=== PATIENT | female | born 1960 | race Caucasian/White ===

== ENCOUNTER 2018-04-12 05:54 | Day surgery (SDC) | payer MEDICAID, SELFPAY ==
--- NOTE | 2018-04-12 | VOCOB_PTH ---
PATIENT: NAKUL CASTLE [place] [facility] [id number] AGE/SX: 57/F ROOM: RE04/12/[address]: Dr. Sebastian Vargas MD : 1960 BED: DIS: 04/12/2018 SPEC #: [id number] RECD: 04/12/18 13:05 STATUS: GAURAV MICHAEL #: [id number] JATINDER: 04/12/18 00:[address]: Sebastian Vargas DEPT: SURGICAL PATHOLOGY RECD BY: Sam Gomez ENTERED: 04/12/18 13:05 SP TYPE: VOCAL CORD OTHR DR: Dr. Pipe Padilla MD Tissues: Vocal cord, NOS Procedures: PAS Fungus (control) Special Stain Group I Surgery Specimen Level IV HEADER OPERATION: Direct microlaryngoscopy PRE-OP DIAGNOSIS: Polyp of vocal cord, hoarseness TISSUE SUBMITTED: Hemorrhagic polyp of left vocal fold MICROSCOPIC DIAGNOSIS Left vocal cord polyp, biopsy: Benign mucosal polyp with hyperkeratosis and focal parakeratosis. 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 Negative for fungal organisms. See Comment. AM:heri 04/15/18 COMMENT PAS stain for focal fungal organisms is negative. Matched control is appropriate. Results from immunohistochemistry ([id number]) for surrogate HPV marker (p16) are reported separately and support the diagnosis. Case has been reviewed in consultation with Dr. Quintero who concurs with the above diagnosis. IDC:SJ MICROSCOPIC DESCRIPTION Slides are reviewed. Sections show fragments of mucosal polyp lined by squamous epithelium with hyperkeratosis and focal parakeratosis. There is focal mild to moderate squamous dysplasia present. GROSS DESCRIPTION Received in fixative is one container labeled with the patient's name and designated hemorrhagic polyp of left vocal cord. The specimen consists of a single irregular fragment of pink-estrada soft tissue that measures 2 x 0.5 x 0.3 cm. The specimen is totally submitted in one cassette. / AM:heri 04/12/18 TC:4 CPT: 54587, 71105
--- NOTE | 2018-04-12 | IMM_PTH ---
PATIENT: NAKUL CASTLE [place] [facility] [place][id number] AGE/SX: 57/F ROOM: RE04/12/[address]: Dr. Sebastian Vargas MD : 1960 BED: DIS: 04/12/2018 SPEC #: [id number] RECD: 04/15/18 10:59 STATUS: GAURAV REQ #: [id number] JATINDER: 04/12/18 00:[address]: Sebastian Vargas DEPT: IMMUNOHISTOCHEMISTRY RECD BY: Frieda Bhat ENTERED: 04/15/18 10:59 SP TYPE: IMMUNO OTHR DR: Dr. Pipe Padilla MD Tissues: Vocal cord, NOS Procedures: p16 (initial) KI-67 (add) PHYSICIAN & INSTITUTION [place] [id number] SPECIMEN INFORMATION: Tissue Source: Hemorrhagic polyp of left vocal fold Clinical Info: Polyp of vocal cord, hoarseness Specimen Number: [id number] CPT code: 01010, 81844 METHODOLOGY: Deparaffinized sections of prefer/formalin-fixed tissue or PAP/DQ stained slides are incubated with monoclonal/polyclonal antibodies/oligonucleotide probes. Localization is made via biotin free immunoperoxidase method. Appropriate controls are performed and reacted as expected. Results on target cell population are indicated in the following table: RESULTS: ANTIBODY / CLONE RESULT P16 (E6H4) positive, focal, patchy Ki-67 (30-9) positive, low These tests were developed and their performance characteristics determined by [facility]. They may not have been cleared or approved by the U.S. Food and Drug Administration. The FDA has determined that such clearance or approval is not necessary. INTERPRETATION: Left vocal cord polyp, biopsy: Focal mild squamous dysplasia. AM:heri 04/16/18 Case has been reviewed in consultation with Dr. Quintero who concurs with the above diagnosis. IDC:BRAYAN
[2018-04-12 06:45] VITALS: BP 117/70; PULSE 81; RESP 16; TEMP 36.9; O2SAT 96; BMI 38.0
[2018-04-12 06:50] LABS: Anion Gap 7 (5-15); BUN 16 mg/dL (7-18); BUN/Creat Ratio 25.1 RATIO (10-20); Chloride 108 mmol/L (98-107); Creatinine, Serum 0.64 mg/dL (0.55-1.02); EST Glomerular Filtration Rate 102 mL/min (>60); Est Glom Filt Rate - Afr Amer 124 mL/min (>60); Glucose 95 mg/dL (74-106); Potassium 3.6 mmol/L (3.5-5.1); Sodium Level 142 mmol/L (136-145)
--- NOTE | 2018-04-12 07:00 | EKG12_ITS ---
Test Reason : PREOP Blood Pressure : / mmHG Vent. Rate : 077 BPM Atrial Rate : 077 BPM P-R Int : 136 ms QRS Dur : 086 ms QT Int : 416 ms P-R-T Axes : 012 033 042 degrees QTc Int : 470 ms Normal sinus rhythm Nonspecific T wave abnormality Prolonged QT Abnormal ECG No previous ECGs available Confirmed by JUMA KIM, GABY ([id number]), visual effects editor LUIS JEAN ([id number]) on 04/16/2018 5:42:31 PM Referred By: Sebastian Vargas Confirmed By:GABY DENNISON MD
[2018-04-12] MEDS: Oxymetazoline 0.05% 1 SPRAY SPRAY.BTL 15 SPRAY (07:40)
[2018-04-12] MEDS: Lidocaine 4% 50 ML Bottle (07:50)
--- NOTE | 2018-04-12 08:06 | PCM.OPRPT ---
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 Examination showed bilateral vocal polyps with a large hemorrhagic polyp on the left. She was counseled regarding the above procedure for improved voicing as well as reduced work of breathing and although this was a biopsy benign-appearing lesion pathologic specimen given his smoking history for possible neoplastic process is also considered and she was agreeable to proceed. The risks, alternatives, potential benefits, and complications were discussed at length and any questions answered to the patient and/or caregiver's satisfaction. Witnessed informed consent was obtained in the office, and the patient and/or caregiver was agreeable to proceed. Procedure went as follows: The patient was identified in the preoperative holding and brought to the operating room she was placed under general anesthesia and it dated. When appropriate anesthesia was obtained, the head of bed was rotated and the patient prepped and draped in usual sterile fashion. A dental guard was then placed to protect the upper gums and the Dedo laryngoscope then introduced. Direct laryngoscopy was then carried out. The lateral posterior pharyngeal wall mucosa, tonsillar fossa, vallecula, piriforms, and epiglottis were noted to be normal in appearance. The true and false vocal folds were then brought into view. The patient was then placed in suspension and the operative microscope brought into the field. Using a pledgets soaked in a 50-50 mixture of oxymetazoline and 4% topical lidocaine the true vocal folds were then topicalized. There were noted to be large polyps arising from the vocal folds bilaterally. This was hemorrhagic on the left and partially obstructing the laryngeal inlet. Using a grasping forceps this was then withdrawn laterally and using an up cutting microlaryngeal scissor was then incised along the vocal process leaving a inferior mucosal flap to be redraped over the incisional site. This was then sent as pathologic specimen. Pledgets were then applied for hemostasis. The pledgets then removed and the patient taken out of suspension and returned to anesthesia where he was revived and extubated without complication having tolerated the procedure well. Type of Anesthesia:: General Anesthesiologist: Rajesh Cruz Special Medications: none Specimen's removed: Left vocal polyp Drains: none Estimated Blood Loss (mL): 0 mL Fluids Replaced: 500 mL Grafts/Implants Used: none - Complications none - Admit VTE Documentation VTE Present on Admission: No VTE Mechan Device Prophylaxis: SCD's VTE Pharm Prophylaxis ordered?: No
--- NOTE | 2018-04-12 08:13 | DCINST_ITS ---
- Discharge Diagnoses Current Active Problems: Current Active and Chronic Problems Polyp of vocal cord and larynx (Chronic) Dysphonia (Chronic) You will use the following diet at home:: Regular Your food should be the consistency of: Regular Discharge Activity: Return to Normal Activity Call your doctor if your incision/area has: - - difficulty breathing Call your doctor if you observe: Fever of 101 or Higher, Uncontrolled pain Additional Instructions: avoid smoking to promote healing Allergies/Adverse Reactions: Allergies morphine Allergy (Verified 04/10/18 10:42) Vomiting Penicillins Allergy (Verified 04/10/18 10:42) Vomiting pollen extracts Adverse Reaction (Verified 04/10/18 10:22) Other Medications to take at Discharge Albuterol Sulfate [Ventolin Hfa] 1 puff IN PRN PRN 04/10/18 Clonazepam 2 mg PO DAILY 04/10/18 Levothyroxine Sodium [Synthroid] 137 mg PO DAILY 04/10/18 RX: ALPRAZolam [Xanax] 0.5 mg PO DAILY 04/10/18 RX: Citalopram [Celexa] 20 mg PO DAILY 04/10/18 RX: Clindamycin [Cleocin] 150 mg PO DAILY 04/10/18 RX: Naproxen [Naprosyn] 500 mg PO DAILY 04/10/18 Primary Care Physician: Pipe Padilla MD [Primary Care Provider] - Test Results: Test results from this visit will be discussed in further detail at your follow- up appointment, if applicable. Please Follow Up With: Sebastian Vargas MD When: 2 weeks
[2018-04-12 08:20] VITALS: BP 109/86; BP 117/70; PULSE 94; RESP 18; TEMP 36.2; O2SAT 93
[2018-04-12 08:30] VITALS: BP 117/70; BP 131/90; PULSE 79; RESP 18; O2SAT 97
[2018-04-12 08:45] VITALS: BP 106/87; BP 117/70; PULSE 86; RESP 16; O2SAT 97
[2018-04-12 08:59] VITALS: BP 103/72; BP 117/70; PULSE 84; RESP 18; TEMP 36.9; O2SAT 96
[2018-04-12 09:17] VITALS: BP 117/70
== END 2018-04-12 09:35 | disposition home or self-care (01) ==
LOC: SDC 05:56 → AC 05:59
PROVIDERS: Family Provider Family Medicine; PCP Family Medicine; Referring Provider Otolaryngology; Visit Provider Otolaryngology
PROC: 0CJS8ZZ Inspection of Larynx, Via Natural or Artificial Opening Endoscopic (ICD-10-PCS; CPT 31575; principal; 2018-04-12 07:25)
DX: J38.1 Polyp of vocal cord and larynx (principal); R49.0 Dysphonia; R23.4 Changes in skin texture; E04.2 Nontoxic multinodular goiter; F17.290 Nicotine dependence, other tobacco product, uncomplicated
CPT/HCPCS: 31541; 36415; 80048; 88305; 88312; 88313; 88341; 88342; 93005; J7120; J2405; J3490

== ENCOUNTER 2021-01-07 05:51 | Day surgery (SDC) | payer MEDICAID, SELFPAY ==
[2021-01-07] VITALS (7 sets, daily range): BP systolic 105–152; BP diastolic 78–99; PULSE 73–89; RESP 18–22; TEMP 36.3–36.8; O2SAT 92–97; BMI 39.1
[2021-01-07] MEDS: Lactated Ringers 1,000 ML 100 ML IV (06:42)
--- NOTE | 2021-01-07 07:30 | VOCOB_PTH ---
PATIENT: NAKUL CASTLE [place] [facility] [place][id number] AGE/SX: 60/F ROOM: RE01/07/[address]: Dr. Sebastian Vargas MD : 1960 BED: DIS: 01/07/2021 SPEC #: [id number] RECD: 01/07/21 08:44 STATUS: GAURAV RODRIGUEZ #: [id number] JATINDER: 01/07/21 07:[address]: Sebastian Vargas DEPT: SURGICAL PATHOLOGY RECD BY: Nancy Dugan ENTERED: 01/07/21 11:55 SP TYPE: VOCAL CORD OTHR DR: Dr. Pipe Padilla MD Tissues: Vocal cord, NOS Procedures: Surgery Specimen Level IV HEADER OPERATION: Excision, vocal polyp PRE-OP DIAGNOSIS: Right vocal cord polyp, hoarseness/dysphagia TISSUE SUBMITTED: Right vocal cord polyp MICROSCOPIC DIAGNOSIS Right vocal cord polyp, biopsy: Fragments of benign vocal cord polyp. AM:heri 01/10/2021 COMMENT Reference is made to the patient's previous left vocal cord polyp, biopsy ([id number]) with similar findings. MICROSCOPIC DESCRIPTION Slides are reviewed. GROSS DESCRIPTION Received in fixative is one container labeled with the patient's name and designated right vocal cord polyp. The specimen consists of multiple irregular fragments of estrada-pink soft tissue that in aggregate measure 1 x 0.5 x 0.1 cm. The specimen is totally submitted in one cassette. / SJ:heri 01/07/21 TC:5 CPT: 03167
[2021-01-07] MEDS: Oxymetazoline 0.05% 1 SPRAY SPRAY.BTL 15 SPRAY (07:55)
[2021-01-07] MEDS: Lidocaine 4% 50 ML Bottle (07:55)
--- NOTE | 2021-01-07 08:15 | OP.PCM_ITS ---
Problems Associated Problem List Diagnoses (1) Polyp of vocal cord and larynx: (2) Dysphonia: Report of Operation Date of Procedure: 01/07/21 Pre-Operative Diagnosis: Right vocal polyp, hoarseness Post-Operative Diagnosis: Same Surgery/Procedure Performed:: Direct microlaryngoscopy with removal of right vocal polyp Description of Surgical Findings:: Jennifer is a 60-year-old female with chronic hoarseness secondary to vocal polyps. The left has been removed with improved breathing complaints but she continue with no hoarseness due to the large right vocal polyp and return for staged resection of the right polyp was offered and she is agreeable to proceed. The risks, alternatives, potential complications, and benefits were discussed at length and any questions answered to the patient and/or caregiver's satisfaction. Witnessed informed consent was obtained in the office, and the patient and/or caregiver was agreeable to proceed. Procedure went as follows: The patient was identified in the preoperative holding and brought to the operating room, placed under general anesthesia, and intubated. When appropriate anesthesia was obtained, the head of bed was rotated and the patient prepped and draped in usual sterile fashion. A dental guard or moistened gauze was then placed to protect the upper gums and the Dedo laryngoscope then introduced. Direct laryngoscopy was then carried out. The lateral posterior pharyngeal wall mucosa, tonsillar fossa, vallecula, piriforms, and epiglottis were noted to be normal in appearance. The true and false vocal folds were then brought into view. There is noted to be a large hemorrhagic polyp on the right. The patient was then placed in suspension and the operative microscope brought into the field. Using pledgets soaked in a 50-50 mixture of oxymetazoline and 4% topical lidocaine the true vocal folds were then topicalized. The right polyp was then grasped with an atraumatic forceps and using an up-cutting microlaryngeal scissor this was then resected along its length leaving a inferiorly based mucosal flap. Upon excision of the polyp mucosal flap was then redraped over the vocal ligament. Pledgets were then aga in placed for hemostasis. The pledgets were then removed and the patient taken out of suspension and returned to anesthesia, was revived, and extubated without complication having tolerated the procedure well. Surgeon: Sebastian Vargas Type of Anesthesia: General Anesthesiologist: DeHorta,Sebastian Specimen's removed: right vocal polyp Drains: none Estimated Blood Loss (mL): 0 mL Fluids Replaced: 800 mL Grafts/Implants Used: none Complications none Admit VTE Documentation VTE Present on Admission: No VTE Mechan Device Prophylaxis: SCD's VTE Pharm Prophylaxis ordered?: No
--- NOTE | 2021-01-07 08:21 | PCM.DC ---
Discharge Instructions Diet Discharge Diet: No restrictions Activity Discharge Activity: Return to Normal Activity Dressing / Incision Call your doctor if you observe: Fever of 101 or Higher, Shortness of breath and Uncontrolled pain Follow Up Care Please Follow Up With: Sebastian Vargas MD When: 2 weeks Test Results: Test results from this visit will be discussed in further detail at your follow-up appointment, if applicable. Discharge Plan Admission Primary Reason for Your Visit: vocal polyps Attending Provider: Sebastian Vargas Primary Care Provider: Pipe Padilla Discharge Orders/Prescriptions Prescriptions: Continued levothyroxine [Synthroid] 137 tablet 137 mg PO DAILY RF: 0 clonazepam 2 tablet 2 mg PO BID RF: 0 albuterol sulfate [Ventolin HFA] 18 GM HFA aerosol inhaler 1 puff IN PRN PRN (Reason: Sob &/Or Wheezing) RF: 0 naproxen 500 tablet 500 mg PO PRN PRN (Reason: Pain) RF: 0 acetaminophen [Tylenol] 325 MG tablet 650 mg PO Q4H PRN PRN (Reason: Mild-Moderate Pain (1-510)) RF: 0 cetirizine 10 mg Tablet 10 mg PO DAILY RF: 0 Referrals / Follow Up: Pipe Padilla MD [Primary Care Provider] - Disposition Disposition (needs filled in before D/C Order can be placed): Home, Self Care
== END 2021-01-07 09:43 | disposition home or self-care (01) ==
LOC: SDC 05:54 → AC 06:11
PROVIDERS: PCP Family Medicine; Referring Provider Otolaryngology; Visit Provider Otolaryngology
PROC: 0CJS8ZZ Inspection of Larynx, Via Natural or Artificial Opening Endoscopic (ICD-10-PCS; CPT 31575; principal; 2021-01-07 07:15)
DX: J38.1 Polyp of vocal cord and larynx (principal); R49.0 Dysphonia; F17.200 Nicotine dependence, unspecified, uncomplicated; E04.1 Nontoxic single thyroid nodule; F41.9 Anxiety disorder, unspecified; J44.9 Chronic obstructive pulmonary disease, unspecified; E03.9 Hypothyroidism, unspecified; Z79.51 Long term (current) use of inhaled steroids; Z79.899 Other long term (current) drug therapy
CPT/HCPCS: 31536; 87426; 88305; J7120; J2405

== ENCOUNTER → 2021-10-31 | Outpatient (CLI) | payer MEDICAID, SELFPAY ==
[2021-10-31 17:22] LABS: Erythrocyte Sedimentation Rate 3 mm/hr (0-30)
[2021-10-31 17:35] LABS: Vitamin B12 417 pg/mL (211-911)
[2021-10-31 17:52] LABS: CRP < 2.90 mg/L (0.0-3.0); T4 Free Direct 1.04 ng/dL (0.76-1.46); Thyroid Stim Hormone (TSH) 1.99 uIU/mL (0.358-3.74)
[2021-11-02 15:08] LABS: Endomysial Antibody IgA Negative (Negative)
[2021-11-02 16:22] LABS: Immunoglobulin A 256 mg/dL (87-352); t-Transglutaminase IgA <2 U/mL (0-3)
[2021-11-05 10:08] LABS: Albumin 3.7 g/dL (2.9-4.4); Alpha-1-Globulins 0.2 g/dL (0.0-0.4); Alpha-2-Globulins 0.6 g/dL (0.4-1.0); Gamma Globulin 0.8 g/dL (0.4-1.8); Immunoglobulin A 261 mg/dL (87-352); Immunoglobulin E 11 IU/mL (6-495); Immunoglobulin G 755 mg/dL (586-1602); Immunoglobulin M 81 mg/dL (26-217); PROEL- TOTAL PROTEIN 6.4 g/dL (6.0-8.5)
[2021-11-06 09:14] LABS: Carbohydrate Ag 19-9 2261 6 U/mL (0-35); Cytoplasmic Ab (C-ANCA) <1:20 titer (Neg:<1:20); Perinuclear Ab (P-ANCA) <1:20 titer (Neg:<1:20)
== END | disposition home or self-care (01) ==
LOC: LAB 15:41
PROVIDERS: PCP Family Medicine; Referring Provider Internal Medicine Gastroenterology; Visit Provider Internal Medicine Gastroenterology
DX: R19.7 Diarrhea, unspecified (principal); R10.9 Unspecified abdominal pain
CPT/HCPCS: 36415; 82607; 82784; 82785; 83516; 84165; 84439; 84443; 85652; 86140; 86255; 86256; 86301; 86334

== ENCOUNTER → 2021-11-01 | Outpatient (CLI) | payer MEDICAID, SELFPAY ==
[2021-11-06 09:10] LABS: Pancreatic Elastase, Fecal 301 (>200)
== END | disposition home or self-care (01) ==
LOC: LABSPEC 17:02
PROVIDERS: PCP Family Medicine; Visit Provider Internal Medicine Gastroenterology
DX: R19.7 Diarrhea, unspecified (principal); R10.9 Unspecified abdominal pain; K58.9 Irritable bowel syndrome, unspecified
CPT/HCPCS: 82653; 83630; 83993; 87177; 87209; 87493; 87506

== ENCOUNTER 2022-03-14 13:43 | Day surgery (SDC) | payer MEDICAID, SELFPAY ==
[2022-03-14] VITALS (7 sets, daily range): BP systolic 110–131; BP diastolic 80–92; PULSE 67–78; RESP 16–18; TEMP 36.6–37; O2SAT 96–100; BMI 38.2
--- NOTE | 2022-03-14 14:05 | HP.PCM_ITS ---
History and Physical Date of Admission: 03/14/22 JENNIFER CASTLE, is a 61 F who presents to the office today for Follow up. Jennifer established with this clinic 10.31.21. She was having issues with hoarseness r/t vocal polyps that were removed 04.12.18 and again 01.07.212018 sample was benign but possessed mild/moderate squamous dysplasia, Ki-67 positive, P16 positive; 2020 sample with similar findings. Reports Cologuard previously four years prior with negative results. Reports right sided abdominal pain that occurs each day with various timing. Sometimes this accompanies diarrhea with urgency occurring each time she has to urinate. Denies marijuana use. Cigarette use of 1+ pack each day. She is seeing Dr. Echeverria for axillary cyst for which she still needs to get an US performed. Biochemical workup ESR, CRP, CA19-9, PEP, globulin, Vitamin B12, TSH, free thyroxine, GAME, JENNIFER, CANCA, celiac without pertinent abnormality. Stool studies pancreatic elastase, ova/parasite, lactoferrin, enteric pathogen, C.Difficile WNL Plan LV 10.31.21: Abdominal pain ? biochemical workup and stool studies Diarrhea ? biochemical workup and stool studies. Previously scheduled for colonoscopy but cancelled this. Continues to have postprandial urgent diarrhea with intermittent right sided abdominal cramping many times in a day without blood or mucus. Reports her food does not digest and feels she sees the same food she ate on one day in her BM the next day. ROS Const Constitutional: No anorexia, fatigue, fever(s), weight change or sleep problems Eyes Eyes: No change in vision ENT ENT: No abnormal hearing, difficulty swallowing, mouth lesions, tongue swelling or throat swelling Resp Respiratory: No cough or shortness of breath Cardio Cardiology: No chest pain at rest, chest pain with exertion, shortness of breath or dyspnea on exertion Gastro GI: No difficulty swallowing Genitourinary-Female: No difficulty urinating or burning urination Musc Musculoskeletal: No joint pain, joint swelling, muscle weakness or decreased muscle mass Skin Skin: No hair loss in leg, yellowing of the eye, itchy eyes, rash, skin ulcer or skin swelling Neuro Neurology: No abnormal hearing, abnormal movements, confusion, unsteady gait/balance or memory loss Psych Psychiatric: No anxiety, No confusion and No memory loss Endo Endocrine: No fatigue or weight change Aller/Imm Allergy/Immunologic: No itchy eyes, throat swelling or tongue swelling Dexter/Lymp Hematologic/Lymphatic: No easy bleeding, easy bruising or enlarged lymph nodes Exam Const General: cooperative and comfortable Nutritional Appearance: average body habitus and well nourished [facility] Head: normal to inspection Ears: hearing grossly normal bilaterally Nose: external nose normal Face and sinus: normal facial exam Mouth: oral mucosae normal Throat: posterior oropharynx normal Eyes General: appearance normal, both eyes and all related structures Neck Neck: normal visual inspection Chest Chest palpation & inspection: normal inspection of the chest and normal palpation of entire chest wall Resp Effort & Inspection: normal respiratory effort Auscultation: Bilateral: Clear to Auscultation Cardio Palpation: normal PMI Rate: regular rate Rhythm: regular rhythm GI Inspection: normal to inspection Auscultation: normal bowel sounds Percussion: normal to percussion Palpation: no hepatosplenomegaly Skin General: no rashes or lesions noted Neuro General: patient alert Extrem General: normal to inspection Psych Affect: normal affect Quality Reporting Tobacco Screening ([facility] 138) Smoking Status: Current every day smoker Assessment and Plan Assessment and Plan (1) Diarrhea: ?Status:?Chronic ?Plan: Her diarrhea does seem more functional.? However since she has had it for a long period of time we will need to rule out infectious etiology so she will get stool test today and she will get a CT scan of the abdomen and pelvis. (2) Abdominal pain: ?Status:?Chronic ?Plan: The differential diagnosis for her right-sided abdominal pain does include hepatomegaly, right-sided colitis secondary to ischemia, inflammatory bowel disease.? She is not having any signs of intussusception or torsion.? This is associated with diarrhea which could have the possibility of inflammation in the colon.? She should get a work-up for infectious and inflammatory disease of the bowel.? She will get stool studies, biochemical profile and we will get a colonoscopy for further evaluation.? She was okay with this plan. I have examined the patient and the H&P has been reviewed. There are no clinical changes since date of exam.
[2022-03-14] MEDS: Lactated Ringers 1,000 ML 15 ML IV (14:29)
--- NOTE | 2022-03-14 15:15 | COLBX_PTH ---
PATIENT: NAKUL CASTLE LOC: [place] U#:[id number] AGE/SX: 61/F ROOM: RE03/14/[address]: Dr. Larry Chirinos DO : 1960 BED: DIS: 03/14/2022 SPEC #: [id number] RECD: 03/14/22 15:43 STATUS: GAURAV REEvy #: [id number] JATINDER: 03/14/22 15:[address]: Larry Chirinos DEPT: SURGICAL PATHOLOGY RECD BY: Radhika Disla ENTERED: 03/15/22 10:13 SP TYPE: COLON BX OTHR DR: Acosta Reyez, CASING MACHINE OPERATOR-C Tissues: A - Ileum, NOS B - COLON BIOPSY C - Transverse colon Procedures: Surgery Specimen Level IV HEADER OPERATION: [place] [place] PRE-OP DIAGNOSIS: Diarrhea, abdominal pain TISSUE SUBMITTED: A - Terminal ileum biopsy, B - Random colonic biopsy, C - Transverse polyp biopsy MICROSCOPIC DIAGNOSIS A. Terminal ileum, biopsy: Fragments of small intestinal mucosa, no pathologic diagnosis. B. Colon, random biopsy: Fragments of colonic mucosa, no pathologic diagnosis. C. Transverse colon polyp, biopsy: Tubular adenoma. SJ:heri 03/16/2022 MICROSCOPIC DESCRIPTION Slides are reviewed. GROSS DESCRIPTION A - Received in fixative is one container labeled with the patient's name and designated terminal ileum biopsy. The specimen consists of one irregular fragment of light estrada soft tissue that measures 0.6 x 0.5 x 0.1 cm. The specimen is totally submitted in one cassette. B - Received in fixative is one container labeled with the patient's name and designated random colon biopsy. The specimen consists of multiple irregular fragments of light estrada soft tissue that in aggregate measure 2 x 1 x 0.1 cm. The specimen is totally submitted in one cassette. C - Received in fixative is one container labeled with the patient's name and designated transverse colon polyp. The specimen consists of one irregular fragment of light estrada soft tissue that measures 0.3 x 0.3 x 0.1 cm. The specimen is totally submitted in one cassette. / AM:heri 03/15/2022 TC:1 CPT: 44144 x3
--- NOTE | 2022-03-14 15:35 | OP.COLON_ITS ---
Patient Name: Jennifer Cash Procedure Date: 03/14/2022 3:02 PM Date of : 1960 Age: 61 Procedure: Colonoscopy Indications: Abdominal pain in the left lower quadrant, Clinically significant diarrhea of unexplained origin Providers: Larry Chirinos DO Medicines: Monitored Anesthesia Care Patient Profile: This is a 61 year old female. Refer to note in patient chart for documentation of history and physical. Last Colonoscopy: none. The patient's first colonoscopy is today. Complications: No immediate complications. Procedure: Pre-Anesthesia Assessment: - Prior to the procedure, a History and Physical was performed, and patient medications and allergies were reviewed. The patient is competent. The risks and benefits of the procedure and the sedation options and risks were discussed with the patient. All questions were answered and informed consent was obtained. Patient identification and proposed procedure were verified by the physician. Mental Status Examination: normal. Prophylactic Antibiotics: The patient does not require prophylactic antibiotics. Prior Anticoagulants: The patient has taken no previous anticoagulant or antiplatelet agents. ASA Grade Assessment: II - A patient with mild systemic disease. After reviewing the risks and benefits, the patient was deemed in satisfactory condition to undergo the procedure. The anesthesia plan was to use monitored anesthesia care (MAC). Immediately prior to administration of medications, the patient was re-assessed for adequacy to receive sedatives. The heart rate, respiratory rate, oxygen saturations, blood pressure, adequacy of pulmonary ventilation, and response to care were monitored throughout the procedure. The physical status of the patient was re-assessed after the procedure. After I obtained informed consent, the scope was passed under direct vision. Throughout the procedure, the patient's blood pressure, pulse, and oxygen saturations were monitored continuously. The colonoscope was introduced through the anus and advanced to the terminal ileum. The colonoscopy was performed without difficulty. The patient tolerated the procedure well. The quality of the bowel preparation was good. Scope In: 3:13:28 PM Scope Withdrawal Time 0 hours 9 minutes 40 seconds Scope Out: 3:27:27 PM Total Procedure Duration Time 0 hours 13 minutes 59 seconds Findings: The perianal and digital rectal examinations were normal. An area of mildly congested mucosa was found in the entire colon. Biopsies were taken with a cold forceps for histology. Verification of patient identification for the specimen was done. Estimated blood loss was minimal. A 5 mm polyp was found in the sigmoid colon. The polyp was sessile. The polyp was removed with a cold snare. Resection and retrieval were complete. Verification of patient identification for the specimen was done. Estimated blood loss was minimal. The terminal ileum appeared normal. Biopsies were taken with a cold forceps for histology. Verification of patient identification for the specimen was done. Estimated blood loss was minimal. Impression: - Congested mucosa in the entire examined colon. Biopsied. - One 5 mm polyp in the sigmoid colon, removed with a cold snare. Resected and retrieved. - The examined portion of the ileum was normal. Biopsied. Recommendation: - Discharge patient to home. - Resume previous diet. - Continue present medications. - Await pathology results. - Repeat colonoscopy in 5 years for surveillance. Procedure Code(s): --- Professional --- 25853, Colonoscopy, flexible; with removal of tumor(s), polyp(s), or other lesion(s) by snare technique [id number], 59, Colonoscopy, flexible; with biopsy, single or multiple CPT copyright 2017 [employer]. All rights reserved. The codes documented in this report are preliminary and upon tow motor operator review may be revised to meet current compliance requirements. Larry Chirinos DO 03/14/2022 3:35:06 PM This report has been signed electronically. Number of Addenda: 0 Note Initiated On: 03/14/2022 3:02 PM
== END 2022-03-14 16:28 | disposition home or self-care (01) ==
LOC: EN 13:45 → AC 13:46
PROVIDERS: PCP Nurse Practitioner Primary Care; Referring Provider Nurse Practitioner Primary Care; Visit Provider Internal Medicine Gastroenterology
PROC: 0DJD8ZZ Inspection of Lower Intestinal Tract, Via Natural or Artificial Opening Endoscopic (ICD-10-PCS; CPT 45378; principal; 2022-03-14 15:10)
DX: D12.3 Benign neoplasm of transverse colon (principal); K63.89 Other specified diseases of intestine; F17.200 Nicotine dependence, unspecified, uncomplicated; E03.9 Hypothyroidism, unspecified; Z79.899 Other long term (current) drug therapy; Z86.010 Personal history of colon polyps
CPT/HCPCS: 45385; 45380; 88305; J7120; J2405